=== PATIENT | male | born 1950 | race Caucasian/White ===

== ENCOUNTER 2017-04-22 14:00 | Emergency (ER) | payer MEDICARE ==
--- NOTE | 2017-04-22 14:38 | RAD ---
CHEST 2 VIEWS: Date: 04/22/17 HISTORY: Cough. Fever. FINDINGS: Cardiac silhouette and pulmonary vasculature are unremarkable. Mediastinum is midline. There is no co nfluent air space consolidation, pneumothorax, or pleural fluid evident. There are degenerative pimentel es of the thoracic spine. IMPRESSION: No active cardiopulmonary abnormalities are demonstrated. POS: H
== END 2017-04-22 15:09 | disposition home or self-care (01) ==
LOC: NAV ERS 14:00
DX: J20.9 Acute bronchitis, unspecified (principal)
CPT/HCPCS: 71046